=== PATIENT | female | born 1975 | race Caucasian/White ===

== ENCOUNTER → 2016-11-04 | Outpatient (CLI) | payer OTHER ==
--- NOTE | 2016-11-06 16:51 | RADIOLOGY REPORT PS360 ---
DIG MAMM-DX UNI A/VW-RT W/CAD ORDERING PHYSICIAN : Francisco Javier Cruz MD PATIENT AGE: 41 years GENDER: Female COMPARISON: Baseline mammogram 10/22/2016 INDICATION: Focal Density highlighted by CAD deep central right breast on cc view FINDINGS: Right breast. CC spot; Additional rolled cc MLO and 90 degree views performed an are helpful and showing that the dense tissue at the deep central breast dissipates with no areas of significant concern. Findings are most in keeping with normal fibroglandular tissue and summation shadows. No areas of significant concern overall. Follow-up right mammogram 6 months to be adequate IMPRESSION: Additional views decreased concern regarding significant new features. . No significant areas of concern. Moderately dense breasts. Follow-up in 6 months recommended BI-RADS CATEGORY: 3_Probably Benign-Short Term F/U RECOMMENDED FOLLOWUP: 6M 6MONTH FOLLOW-UP (A letter has been sent to the patient regarding results of the study.)
== END ==
LOC: RAD 14:09
DX: R92.2 Inconclusive mammogram (principal)
CPT/HCPCS: G0206-RT